=== PATIENT | male | born 1980 | race Caucasian/White ===

== ENCOUNTER 2022-08-23 10:47 | Emergency (ER) | payer SELFPAY ==
[~2022-08-23] VITALS: Ht 185.4 cm; Wt 147.4 kg
[2022-08-23] MEDS ORDERED: PREDNISONE50 MG PO (11:39)
== END 2022-08-23 12:08 | disposition home or self-care (01) ==
LOC: ED 10:47
DX: M54.41 Lumbago with sciatica, right side (principal); Z88.0 Allergy status to penicillin

== ENCOUNTER 2025-05-10 10:41 | Emergency (ER) | payer MEDICAID ==
[~2025-05-10] VITALS: Ht 185.4 cm; Wt 142.9 kg
[~2025-05-10 10:41] MED LIST: PREDNISONE50 MG PO
[2025-05-10] MEDS ORDERED: SODIUM CHLORIDE 0.9% 1,000 ML IV ONE (11:10)
[2025-05-10] MEDS ORDERED: Ondansetron Hydrochloride 4 MG/2 ML VIAL IV ONE (11:10)
[2025-05-10 11:39] LABS: BASO # 0.1 10*3/uL (0.0-0.1); BASO % 0.9 % (0.0-1.0); EOS # 0.4 10*3/uL (0.0-0.4); EOS % 5.3 % (1.0-4.0); MEAN CELL VOLUME 89.4 fl (80.0-94.0); MEAN CORPUSCULAR HGB 29.7 pg (27.0-31.0); MEAN PLATELET VOLUME 10.3 fl (9.6-12.3); MONO # 0.5 10*3/uL (0.1-1.0); MONO % 7.1 % (3.0-9.0); NEUT # 4.7 10*3/uL (2.3-7.9); NEUT % 67.3 % (47.0-73.0); NUCLEATED RED BLOOD CELL 0.0 % (0.0-0.0); NUCLEATED RED BLOOD CELL 0.0 10*3/uL (0.0-0.0); PLATELET COUNT AUTOMATED 157 10*3/uL (130-400); RED CELL DISTRI WIDTH 14.0 % (0-14.5)
[2025-05-10 12:00] LABS: BUN 12 mg/dl (9-23)
[2025-05-10] MEDS ORDERED: PERCOCET 5-3251 EACH PO (12:20)
[2025-05-10] MEDS ORDERED: Ondansetron4 MG PO (12:20)
[2025-05-10] MEDS ORDERED: METRONIDAZOLE500 M1 PO (12:20)
[2025-05-10] MEDS ORDERED: CIPRO500 MG PO (12:20)
== END 2025-05-10 12:39 | disposition home or self-care (01) ==
LOC: ED 10:41
PROVIDERS: Emergency Medicine
DX: K57.32 Diverticulitis of large intestine without perforation or abscess without bleeding (principal); R10.32 Left lower quadrant pain; Z88.0 Allergy status to penicillin